=== PATIENT | male | born 1935 | race African-American/Black ===

== ENCOUNTER 2017-09-16 02:17 | Emergency (ER) | payer MEDICARE ==
[~2017-09-16] VITALS: Ht 180.3 cm; Wt 103.2 kg
[2017-09-16 02:23] VITALS: Ht 180.3 cm; Wt 103.2 kg
[2017-09-16] MEDS ORDERED: ALENDRONATE SOD70 MG PO (02:25)
[2017-09-16] MEDS ORDERED: REMICADE INJ100 MG (02:25)
[2017-09-16] MEDS ORDERED: FOLIC ACID1 MG PO (02:25)
[2017-09-16] MEDS ORDERED: PREDNISONE5 MG PO (02:26)
[2017-09-16] MEDS ORDERED: BAYER CHEWABLE81 MG PO (02:26)
[2017-09-16] MEDS ORDERED: HCTZ25 MG PO (02:26)
[2017-09-16] MEDS ORDERED: ULTRAM50 MG PO (02:26)
[2017-09-16] MEDS ORDERED: METHOTREXATE2.5 MG PO (02:27)
[2017-09-16] MEDS ORDERED: FLOMAX0.4 MG PO ×4 (02:28→06:14)
[2017-09-16] MEDS ORDERED: PROSCAR5 MG PO (02:29)
[2017-09-16] MEDS ORDERED: XALATAN 0.0052.5 ML EACH EYE (02:29)
[2017-09-16 03:12] LABS: BASOPHILS 0.3 % (0-2); EOSINOPHILS 1.2 % (0-7); HEMATOCRIT 35.7 % (42.0-54.0); HEMOGLOBIN 11.8 g/dL (13.5-17.5); IMMATURE GRANULOCYTES 0.1 % (0-5); LYMPHOCYTES 17.2 % (15-50); MCH 30.8 pg (26.0-34.0); MCHC 33.1 g/dL (31.0-37.0); MCV 93.2 fL (80.0-100.0); MEAN PLATELET VOLUME 10.9 fL (7.4-10.4); MONOCYTES 11.9 % (2-11); NEUTROPHILS 69.3 % (40-80); PLATELET COUNT 121 10x3/uL (130-400); RBC 3.83 10x6/uL (4.20-6.10); RDW 14.7 % (11.5-14.5); WBC 7.5 10x3/uL (4.8-10.8)
[2017-09-16 03:18] LABS: AMORPHOUS SEDIMENT >1+ /lpf (NONE SEEN); APPEARANCE HAZY (CLEAR); BACTERIA NONE SEEN /hpf (NONE SEEN); BILIRUBIN NEGATIVE (NEGATIVE); COLOR YELLOW (YELLOW); EPITHELIAL CELLS NSEEN /hpf (0-5); GLUCOSE NEGATIVE (NEGATIVE); KETONE NEGATIVE (NEGATIVE); NITRITE NEGATIVE (NEGATIVE); PROTEIN TRACE mg/dL (NEGATIVE); RED CELLS - URINE >50 /hpf (0-5); UROBILINOGEN NORMAL (NORMAL); WHITE CELLS - URINE 0-5 /hpf (0-5)
[2017-09-16 03:25] LABS: ALBUMIN 3.4 g/dL (3.4-5.0); ANION GAP 12.7 mmol/L (8-16); BILIRUBIN - TOTAL 0.41 mg/dL (0.2-1.3); CALCIUM 9.9 mg/dL (8.5-10.1); CARBON DIOXIDE 30.2 mmol/L (21.0-32.0); CREATININE - SERUM 1.5 mg/dL (0.6-1.3); POTASSIUM - SERUM 3.9 mmol/L (3.5-5.1); PROTEIN - SERUM 8.7 g/dL (6.4-8.2)
[2017-09-16] MEDS ORDERED: ZOFRAN ODT4 MG/UDTAB PO ×2 (06:07→06:14)
[2017-09-16] MEDS ORDERED: HYDROCODONE-APA1 TAB PO (06:11)
[2017-09-16 06:39] VITALS: BP 135/70
== END 2017-09-16 06:35 | disposition home or self-care (01) ==
LOC: D.ER 02:17
PROVIDERS: Family Medicine
DX: N20.1 Calculus of ureter (principal)